=== PATIENT | male | born 1960 | race Caucasian/White ===

== ENCOUNTER → 2018-04-18 | Day surgery (SDC) | payer BC ==
[~2018-04-18] MED LIST: BUPIVACAINE 0.5% (SDV) 30 ML INJ; CEFAZOLIN 1 GM INJ; DIPHENHYDRAMINE 50 MG INJ IV; EPHEDrine 25 MG/5 ML SYG; EPHEDrine SULFATE 50 MG/5 ML SYG IV; FENTAnyl 50 MCG/ML VIAL; HYDROmorphONE 1 MG/5 ML IV SYRINGE IV; HYDROmorphONE 2 MG/ML SYG; KETOROLAC 30 MG INJ; MEPERIDINE 25 MG INJ IV; METOCLOPRAMIDE 10 MG INJ; MIDAZOLAM 1 MG/ML 2 ML INJ; ONDANSETRON 4 MG INJ; ONDANSETRON 4 MG INJ IV; OXYCODONE/ACETAMINOPHEN (5/325) TAB PO; PROPOFOL 20 ML; ROPIVACAINE 0.2% 20 ML VIAL; VANCOMYCIN 1 GM (PMX) 250 ML
[2018-04-18] MEDS: POLYMYXIN/BACITRACIN 1L IRRIG (17:19)
== END | disposition home or self-care (01) ==
LOC: SDS 13:18
DX: T84.84XA Pain due to internal orthopedic prosthetic devices, implants and grafts, initial encounter (principal); T84.59XA Infection and inflammatory reaction due to other internal joint prosthesis, initial encounter; Y79.3 Surgical instruments, materials and orthopedic devices (including sutures) associated with adverse incidents; S42.401K Unspecified fracture of lower end of right humerus, subsequent encounter for fracture with nonunion; X58.XXXD Exposure to other specified factors, subsequent encounter; G56.21 Lesion of ulnar nerve, right upper limb; L90.5 Scar conditions and fibrosis of skin; M25.721 Osteophyte, right elbow
CPT/HCPCS: 24110; 73060-RT; 87070; 87075; 87102; 87116; 88300